=== PATIENT | male | born 1940 | race Caucasian/White ===

== ENCOUNTER 2021-08-22 17:10 | Inpatient (IN) | payer MEDICARE, SELFPAY ==
--- NOTE | 2021-08-22 17:07 | ECG_ITS ---
APPROVED REPORT Exam: Resting ECG HR:66 bpm ECG Measurements Heart Rate 66 AXES QRSd 105 QRS -25 QT 362 T 57 QTc 376 Conclusion ATRIAL FIBRILLATION LOW QRS VOLTAGE IN EXTREMITY LEADS [QRS DEFLECTION < 0.5 mV IN LIMB LEADS] ANTEROSEPTAL MYOCARDIAL INFARCTION , PROBABLY OLD [40+ ms Q WAVE IN V1-V4] ABNORMAL ECG UNCONFIRMED REPORT Electronically signed by : Jd Dumont MD 08/24/2021 18:01:04
[2021-08-22 17:23] VITALS: BP 102/59; PULSE 65; RESP 18; TEMP 36.9; O2SAT 96; BMI 33.3
--- NOTE | 2021-08-22 17:46 | CT_ITS ---
PROCEDURE INFORMATION: Exam: CT Head Without Contrast Exam date and time: 08/22/2021 5:46 PM Age: 81 years old Clinical indication: Altered mental status/memory loss; Confusion or disorientation; Additional info: AMS. Wo contrast due to [id number] creat 7.10 gfr 7 TECHNIQUE: Imaging protocol: Computed tomography of the head without contrast. Radiation optimization: All CT scans at this facility use at least one of these dose optimization techniques: automated exposure control; mA and/or kV adjustment per patient size (includes targeted exams where dose is matched to clinical indication); or iterative reconstruction. Other technique: STROKE PROTOCOL was implemented. COMPARISON: No relevant prior studies available. FINDINGS: Brain: Periventricular and subcortical small vessel ischemic changes. Severe atrophy associated. No acute hemorrhage, mass effect, midline shift, or extra-axial fluid collection. Cerebral ventricles: No ventriculomegaly. Paranasal sinuses: Visualized sinuses are unremarkable. No fluid levels. Mastoid air cells: Visualized mastoid air cells are well aerated. Bones/joints: Unremarkable. No acute fracture. Soft tissues: Unremarkable. IMPRESSION: No acute intracranial abnormality. ASSESSMENT: ASPECTS ([place] Stroke Program Early CT Score) is 10.
--- NOTE | 2021-08-22 17:46 | XR_ITS ---
PROCEDURE INFORMATION: Exam: XR Chest Exam date and time: 08/22/2021 5:46 PM Age: 81 years old Clinical indication: Other: Hypoxia, lung cancer by HX, AMS; Additional info: AMS, hypoxia TECHNIQUE: Imaging protocol: XR of the chest. Views: 1 view. COMPARISON: No relevant prior studies available. FINDINGS: Tubes, catheters and devices: Dorsal column stimulator in the lower T-spine. Lungs: Right lung mass with right lower lobe infiltrate. Pleural spaces: Unremarkable. No pleural effusion. No pneumothorax. Heart/Mediastinum: Unremarkable. No cardiomegaly. Bones/joints: Right shoulder arthroplasty. IMPRESSION: Right lung mass with right lower lobe infiltrate.
--- NOTE | 2021-08-22 17:50 | HMH.EDGENADL ---
ED Disposition Clinical Impression: Acute encephalopathy Disposition: Admitted As Inpatient Condition on Discharge: Critical - Critical Care Critical Care Time: Yes Attestation: On 08/22/21, the high probability of a clinically significant, sudden or life threatening deterioration of the following system(s) required my full and direct attention, intervention and personal management. The time I documented below is in addition to time spent performing reported procedures but includes the following listed in this critical care notation. Total Critical Care Time: 45 Vital system(s) involved:: Renal Failure My critical care processes included: Assessment & monitoring of V/S, Initial and Re-exams, Data Review/Interpretation, Coordinating Care, Medication Orders and management, Documentation Medical Decision Making - Reuben Inquiry Pt receiving controlled substance: No Vital Signs: 08/22/21 17:23 08/22/21 18:00 08/22/21 18:15 Temperature 98.4 F Temperature Source Oral Pulse Rate 69 70 Pulse Rate [Left Radial] 65 Respiratory Rate 18 16 22 Blood Pressure 108/75 L 108/75 L Blood Pressure [Right Arm] 102/59 L Blood Pressure Mean 86 Blood Pressure Mean [Right Arm] 73 02 Sat by Pulse Oximetry 96 95 97 Oxygen Delivery Method Room Air Nasal Cannula Oxygen Flow Rate (LPM) 2 - Lab Data Lab Results 08/22/21 17:24: WBC 18.4 H, RBC 2.75 L, Hgb 8.3 L, Hct 26.1 L, MCV 95.1 H, MCH 30.1, MCHC 31.6 L, RDW 18.5 H, Plt Count 322, MPV 8.0, Neut % (Auto) 91.4 H, Lymph % (Auto) 3.6 L, Miller % (Auto) 4.3, Eos % (Auto) 0.5, Baso % (Auto) 0.1, Neut # (Auto) 16.8 H, Lymph # (Auto) 0.7, Miller # (Auto) 0.8, Eos # (Auto) 0.1, Baso # (Auto) 0.0, Total Counted 100, Neutrophils % (Manual) 81 H, Band Neutrophils % 11.0 H, Lymphocytes % (Manual) 5 L, Monocytes % (Manual) 3, Platelet Estimate Normal, Hypochromasia 1+, Anisocytosis 1+, Rouleaux 2+ 08/22/21 17:24: Sodium 122 L, Potassium 6.5 H*, Chloride 92 L, Carbon Dioxide 21 L, Anion Gap 15.5 H, BUN 110 H*, Creatinine 7.10 H, Estimated Creat Clear 14, Estimated GFR 7 L*, Est GFR ( Amer) 9 L*, Glucose 91, Calcium 9.0, Total Bilirubin 0.6, AST 23, ALT 19, Alkaline Phosphatase 118, Troponin I 0.03, Total Protein 6.0 L, Albumin 3.1 L, Globulin 2.9, Albumin/Globulin Ratio 1.1, TSH 15.70 H, Thyroxine (T4) 3.9 L, Salicylates 1.4 L, Acetaminophen < 10 L 08/22/21 18:20: Lactate 1.7 08/22/21 18:36: Urine Color Yellow, Urine Appearance Clear, Urine pH 6.0, Ur Specific [place] 1.010, Urine Protein Negative, Urine Glucose (UA) Negative, Urine Ketones Negative, Urine Blood Negative, Urine Nitrate Negative, Urine Bilirubin Negative, Urine Urobilinogen 0.2, Ur Leukocyte Esterase Negative, Urine RBC Occasional, Urine WBC Occasional, Ur Squamous Epith Cells None, Urine Bacteria None 08/22/21 18:36: Urine Opiates Screen Positive H, Urine Methadone Screen Negative, Ur Barbituates Screen Negative, Ur Phencyclidine Scrn Negative, Ur Amphetamines Screen Negative, U Benzodiazepines Scrn Negative, Urine Cocaine Screen Negative, U Marijuana (THC) Screen Negative Result diagrams: 08/22/21 17:24 08/22/21 17:24 Orders (Tests/Meds): ED MEDICATIONS Generic Name Dose Route Start Last Admin Trade Name Freq PRN Reason Stop Dose Admin Calcium Gluconate 2,000 mg/ 120 mls @ 60 mls/hr 08/22/21 18:19 08/22/21 18:42 Sodium Chloride IV 08/22/21 20:18 60 mls/hr ONCE ONE Administration Sodium Chloride 10 ml 08/22/21 18:48 Sodium Chloride 0.9% 10ml Vial IV 09/21/21 18:47 NEEDED PRN to Dilute Lorazepam inj Discontinued Medications Generic Name Dose Route Start Last Admin Trade Name Freq PRN Reason Stop Dose Admin Dextrose 25 ml 08/22/21 18:20 08/22/21 18:42 Dextrose 50% 50ml Syringe (Crash Cart) IVP 08/22/21 18:21 25 ml ONCE ONE Administration Furosemide 40 mg 08/22/21 18:21 08/22/21 18:44 Furosemide 40mg/4ml Vial IV 08/22/21 18:22 40 mg ONCE ONE Administratio
[2021-08-22 18:00] VITALS: BP 108/75; PULSE 69; RESP 16; O2SAT 95
[2021-08-22 18:01] LABS: Basophils % 0.1 % (0.1-2.0); Eosinophils # 0.1 K/mm3 (0.0-0.4); Lymphocytes # 0.7 K/mm3 (0.7-4.5); Mean Corpuscular Volume 95.1 fl (80-94); Monocytes # 0.8 K/mm3 (0.1-1.0); Platelet Count 322 K/mm3 (142-424)
[2021-08-22 18:05] LABS: Alanine Aminotransferase 19 U/L (12-78); Albumin Level 3.1 g/dl (3.5-5.0); Albumin/Globulin Ratio 1.1 (1.1-1.8); Alkaline Phosphatase 118 U/L (38-126); Anion Gap 15.5 mEq/L (5-15); Aspartate Amino Transferase 23 U/L (17-59); Bilirubin,Total 0.6 mg/dl (0.2-1.3); Carbon Dioxide 21 mmol/L (22.0-30.0); Chloride 92 mmol/L (98-107); Creatinine Clearance Estimated 14 mL/min (50-200); Globulin 2.9 g/dL (1.3-3.2); Glucose 91 mg/dl (74-100); Salicylate 1.4 mg/dL (2.0-20.0); Sodium 122 mmol/L (136-145)
[2021-08-22 18:06] LABS: Eosinophils % 0.5 % (0.1-12.0); Hemoglobin 8.3 g/dL (14.1-18.0); Lymphocytes % 3.6 % (10-50); Mean Corpuscular HGB Conc 31.6 g/dL (31.8-35.4); Mean Corpuscular Hemoglobin 30.1 pg (27.0-31.2); Monocytes % 4.3 % (1.7-9.3); Neutrophils # 16.8 K/mm3 (1.8-7.8); Neutrophils % 91.4 % (37.0-80.0); Red Blood Count 2.75 M/mm3 (4.60-6.20); Red Cell Distribution Width 18.5 % (11.5-17.5); White Blood Count 18.4 K/mm3 (4.8-10.8)
[2021-08-22 18:11] LABS: Acetaminophen < 10 ug/ml (10-30); Blood Urea Nitrogen 110 mg/dl (9-20); Potassium 6.5 mmoL/L (3.5-5.1)
[2021-08-22 18:12] LABS: Estimated Glomerular Filt Rate 7 ml/min (>60); GFR (African American) 9 ML/MIN (>60)
[2021-08-22 18:13] LABS: Hematocrit 26.1 % (42.0-52.0)
[2021-08-22 18:15] VITALS: BP 108/75; PULSE 70; RESP 22; O2SAT 97
[2021-08-22 18:15] LABS: MANUAL DIFFERENTIAL MANUAL DIFFERENTIAL (MANUAL DIFF)
[2021-08-22 18:17] LABS: Troponin I 0.03 ng/ml (0.00-0.034)
[2021-08-22 18:18] LABS: Anisocytosis 1+; Hypochromasia 1+; Lymphocytes % 5 % (10-50); Monocytes % 3 % (2-9); Neutrophils % 81 % (42-76); Platelet Estimate Normal; Rouleaux 2+; Total Cells Counted 100
[2021-08-22 18:22] LABS: T4 (Thyroxine) 3.9 ug/dl (5.53-11.0)
--- NOTE | 2021-08-22 18:37 | PC.NURSE ---
Pt to rad
[2021-08-22 18:41] LABS: Microscopic, Urine URINE MICROSCOPIC (MICROSCOPIC)
[2021-08-22 18:48] LABS: Lactic Acid 1.7 mmol/L (0.7-2.1)
[2021-08-22 18:56] LABS: Barbiturates Screen,Urine Negative ng/ml (<200); Benzodiazepines Screen,Urine Negative ng/ml (<200)
--- NOTE | 2021-08-22 18:56 | PC.NURSE ---
Dr Julia victor
[2021-08-22 18:57] LABS: Amphetamine/Metha Screen,Urine Negative ng/ml (<1000); Appearance,Urine CLEAR (Clear); Bilirubin,Urine Negative (Negative); Blood, Urine Negative (Negative); Cannabinoid Screen,Urine Negative ng/ml (<50); Color,Urine YELLOW (Yellow); Glucose,Urine (UA) Negative (Negative); Ketones,Urine Negative (Negative); Leukocyte Esterase,Urine Negative (Negative); Nitrate,Urine Negative (Negative); Protein,Urine Negative (Negative); Urobilinogen,Urine 0.2 EU/dl (0.2)
[2021-08-22 18:58] LABS: Cocaine Screen,Urine Negative ng/ml (<300)
[2021-08-22 18:59] LABS: Methadone Screen,Urine Negative ng/ml (<300); Opiate Screen,Urine Positive ng/ml (<300)
[2021-08-22 19:00] VITALS: BP 122/67; PULSE 49; O2SAT 88
[2021-08-22 19:00] LABS: Phencyclidine Screen,Urine Negative ng/ml (<25)
--- NOTE | 2021-08-22 19:01 | PC.NURSE ---
1800ml emptied from huynh bag.
[2021-08-22 19:02] LABS: RBC,Urine Occasional #/hpf (0-3); WBC,Urine Occasional #/hpf (0-3)
--- NOTE | 2021-08-22 19:06 | PC.NURSE ---
ED doctor on phone with Ad
[2021-08-22 19:08] LABS: Coronavirus 19, PCR Not Detected (NotDetected); Influenza A, PCR Not Detected (NotDetected); Influenza B, PCR Not Detected (NotDetected)
[2021-08-22 19:39] VITALS: BP 122/67; PULSE 49; RESP 20; TEMP 36.6; O2SAT 88
[2021-08-22 19:41] VITALS: BP 124/67; PULSE 66; RESP 17; TEMP 36.6; O2SAT 94; BMI 36.3
--- NOTE | 2021-08-22 19:41 | PC.NURSE ---
patient up to floor via stretcher @ this time.
--- NOTE | 2021-08-22 23:13 | PC.NURSE ---
[id number] attempted to call [facility] to get an updated medication list for this patient, voice mail left at this time
--- NOTE | 2021-08-23 02:30 | PC.WOUNDNOTE ---
COCCYX STAGE 2 DRESSING APPLIED BRUISE TO L UPPER ARM R LOWER EXTREMITY - EXTERNAL FIXATOR REDNESS AND SWELLING LLE SCRATCH/BRUISE TO L HIP
[2021-08-23 04:00] VITALS: BP 93/65; PULSE 82; RESP 20; TEMP 36.7; O2SAT 94
--- NOTE | 2021-08-23 04:02 | PC.NURSE ---
Attempted to call [facility] again to obtain med list, went to voicemail. Voicemail left with call back number.
--- NOTE | 2021-08-23 04:17 | PC.NURSE ---
Pt was a new admit this shift. Pt admitted with acute encephalopathy. Pt has had AMS, slurred speech. Pt has replied to some questions with yes or no answer. When asked if he is comfortable pt stated yes . According to on 08/21 pt was talking and having conversations with her, then when she seen him yesterday he was confused, hallucinating, had slurred speech, and increase in baseline tremors. Pt has slept majority of my shift, but arousable. Pt seems to be comfortable at this time. at bedside with pt d/t prognosis, states she just wants pt to be comfortable. Pt is a DNR. Pt voiding dark colored urine per huynh catheter. See I&O. Medicating pt per SEP. Pt is on 3 L NC, maintaining O2 sat > 90%. Pt has an external fixator on RLL, elevated on foam pillow. See nursing wound note for skin issues. Call light in reach.
[2021-08-23 05:10] VITALS: BMI 36.3
[2021-08-23 08:00] VITALS: BP 118/67; PULSE 83; RESP 19; TEMP 36.9; O2SAT 92
--- NOTE | 2021-08-23 09:52 | HMH.HP ---
*Admission Date: 08/22/21 *Chief complaint: confusion *History of present illness: this is a patient who has complicated medical hx and was at [facility] and dev acute confusion - he has known ent cancer and treatment had been suspended sec to other health issues - can only drink liquids - he was seen in the ed per ems. per ems pt has slurred speech, tremors and weakness. on arrival pt is alert and oriented to self. pt has no complaints. pt denies any pain. unable to reach care home staff for report. 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 Patient was found this AM around 0800 at care home by at bedside (who provides history) and patient seemed confused, staring off into space, grabbing at seemingly visual hallucinations in air in front of him, with slurred speech. He was more tremulous than usual (but at baseline has tremors due to peripheral neuropathy per his at bedside). He was noted by care home to have dark urine this AM and there was concern for UTI. Patient normally able to conversate without trouble and without confusion. History is difficult to obtain from patient himself given his altered mental status male presents for AMS. LKN 1700 on 08/21/21. Seen altered this AM by at care home. Patient intermittently following commands, with slurred speech, answering questions appropriately at times, mild right lower facial droop, with RUE weakness compared to LUE. He is awake, alert, able to respond to external stimuli intermittently. Not able to participate with full neuro exam. Tachycardic at times, with increased tremors making obtaining consistent cardiac monitoring and spo2 monitoring difficult to obtain. Afebrile, normal range temp. Low-normal BP in triage. DDx includes but not limited to sepsis, intoxication, electrolyte abnormality, CVA, ACS, PE, metastasis. Labs reveal wbc 18k, k 6.5, cr 7.1, bun 110. EKG shows afib without RVR, with wavy baseline given patient's tremors but no gross ST changes. Given pt's encephalopathy and lab findings I believe patient needs emergent dialysis and advised patient's that patient would need transfer to dialysis capable facility given that is not done here. discussed extensively with patient who is pt's poa about pt's critical illness and time sensitive treatment needs and after long discussion, pt states she would not want pt to suffer and pt himself would not want this for himself. Pt made DNR, DNI and pt states she does not believe pt would want to have dialysis or be transferred for this. She wants pt to be comfortable and I directly expressed that pt has extremely poor prognosis without dialysis and may within hours to days. she understands this and acknowledges that she believes pt would want things as per her choices for him at this time. Pt was given calcium, insulin, dextrose, bicarbonate here in the ED. CT head was without acute findings. Contrasted scans were not obtained given patient's critically poor renal function and given his anticipated clinical course,and pt's amenable to this plan for patient. CXR shows right lung mass and infiltrates. Blood and urine cultures collected, pt given empiric abx vancomycin and cefepime. Spoke with Dr. Peralta (operations accountant inpatient physician for admissions) and he is amenable to this plan. pt was admitted and has recent fx and has ext fixator rt lower leg - nonambulatory [facility] History I have reviewed the patient's past medical history: Yes Medical History: Reports:: Atrial Fibrillation, Cancer, Hyperlipidemia, Hypertension Denies:: Diabetes Mellitus Type 1, Diabetes Mellitus Type 2, MRSA *Have you ever received a pneumonia vaccine?: No *Have you received a flu vaccine this se
[2021-08-23 10:49] LABS: Basophils % 0.1 % (0.1-2.0); Eosinophils # 0.1 K/mm3 (0.0-0.4); Eosinophils % 0.8 % (0.1-12.0); Hematocrit 24.6 % (42.0-52.0); Hemoglobin 7.8 g/dL (14.1-18.0); Lymphocytes # 0.5 K/mm3 (0.7-4.5); Lymphocytes % 3.3 % (10-50); Mean Corpuscular HGB Conc 31.9 g/dL (31.8-35.4); Mean Corpuscular Hemoglobin 30.3 pg (27.0-31.2); Mean Corpuscular Volume 94.8 fl (80-94); Mean Platelet Volume 8.1 fl (7.4-10.4); Monocytes # 0.8 K/mm3 (0.1-1.0); Monocytes % 5.3 % (1.7-9.3); Neutrophils # 13.8 K/mm3 (1.8-7.8); Neutrophils % 90.6 % (37.0-80.0); Platelet Count 302 K/mm3 (142-424); Red Blood Count 2.59 M/mm3 (4.60-6.20); Red Cell Distribution Width 18.9 % (11.5-17.5); White Blood Count 15.2 K/mm3 (4.8-10.8)
[2021-08-23 10:50] LABS: MANUAL DIFFERENTIAL MANUAL DIFFERENTIAL (MANUAL DIFF)
[2021-08-23 11:02] LABS: Chloride 97 mmol/L (98-107); Potassium 3.4 mmoL/L (3.5-5.1); Sodium 128 mmol/L (136-145)
[2021-08-23 11:05] LABS: Anion Gap 7.4 mEq/L (5-15); Calcium 8.9 mg/dl (8.4-10.2); Carbon Dioxide 27 mmol/L (22.0-30.0); Creatinine Clearance Estimated 28 mL/min (50-200); Estimated Glomerular Filt Rate 15 ml/min (>60); GFR (African American) 19 ML/MIN (>60); Glucose 83 mg/dl (74-100)
[2021-08-23 11:08] LABS: Blood Urea Nitrogen 88 mg/dl (9-20)
[2021-08-23 12:22] LABS: Anisocytosis 1+; Lymphocytes % 10 % (10-50); Monocytes % 4 % (2-9); Neutrophils % 84 % (42-76); Platelet Estimate Normal; Rouleaux 2+; Total Cells Counted 100
--- NOTE | 2021-08-23 14:05 | HMH.PHAINT ---
CALLED [facility] ([phone]) THIS MORNING AND SPOKE WITH SOMEONE AT NURSING STATION [facility], STATING THEY WOULD TELL A NURSE AND HAVE THEM FAX A COPY OF THE MAR. CALLED BACK AT 14:00 SINCE NO FAX WAS RECEIVED AND HAD TO LEAVE A MESSAGE.
--- NOTE | 2021-08-23 14:58 | PC.NURSE ---
PT IS RESTING IN BED WITH FAMILY AT BEDSIDE. ALERT TO SELF ONLY. PT WILL ANSWER SIMPLE YES OR NO QUESTIONS. PT RECEIVED MORPHINE ONE TIME THIS SHIFT FOR DISCOMFORT. TURNED AND REPOSITIONED PER FAMILY/PATIENT REQUEST. PT HAS BEEN TAKING SIPS OF BOOST ON AND OFF T/O THE SHIFT. EXTERNAL FIXATOR NOTED TO LLE. PT HAS 3+ PITTING EDEMA NOTED TO LLE/BUE. LUNG SOUNDS DIMINISHED WITH SCATTERED RHONCHI. ABDOMEN SOFT/NON TENDER WITH ACTIVE BOWEL SOUNDS. STAGE 2 NOTED TO COCCYX. WILL CONTINUE TO MONITOR.
[2021-08-23 20:10] VITALS: BP 100/56; PULSE 113; RESP 18; TEMP 38.2; O2SAT 97
--- NOTE | 2021-08-24 05:47 | PC.NURSE ---
During my shift, pts speech clear, coherent. Pt alert and oriented to self, talking to and staff. Answering simple questions appropriately, with periods of confusion. Pt has had c/o of pain in his back and all over . Medicated per SEP for pain. Around 0300 pts states the pt is agitated and is anxious. When asked pt whats wrong he states he can't sleep and can't relax. Medicated per SEP. Pt resting comfortably at this time. Pt is urinating per huynh catheter dark colored urine. See I&O. Pt is still on 3 L NC, O2 sat > 90%.Turning pt at pt/family request. Providing oral care as needed. Pt has been taking sips of water and boost. No other needs voiced at this time. at bedside. Call light in reach.
[2021-08-24 07:26] LABS: Basophils % 0.2 % (0.1-2.0); Eosinophils # 0.1 K/mm3 (0.0-0.4); Eosinophils % 0.5 % (0.1-12.0); Hematocrit 23.9 % (42.0-52.0); Hemoglobin 7.7 g/dL (14.1-18.0); Lymphocytes # 0.5 K/mm3 (0.7-4.5); Lymphocytes % 3.9 % (10-50); Mean Corpuscular Hemoglobin 30.5 pg (27.0-31.2); Mean Corpuscular Volume 95.1 fl (80-94); Mean Platelet Volume 7.4 fl (7.4-10.4); Monocytes # 0.8 K/mm3 (0.1-1.0); Monocytes % 5.9 % (1.7-9.3); Neutrophils # 12.5 K/mm3 (1.8-7.8); Neutrophils % 89.5 % (37.0-80.0); Platelet Count 301 K/mm3 (142-424); Red Blood Count 2.51 M/mm3 (4.60-6.20); Red Cell Distribution Width 18.3 % (11.5-17.5); White Blood Count 13.9 K/mm3 (4.8-10.8)
[2021-08-24 07:33] LABS: MANUAL DIFFERENTIAL MANUAL DIFFERENTIAL (MANUAL DIFF)
[2021-08-24 07:35] VITALS: BP 112/51; PULSE 119; RESP 16; TEMP 36.8; O2SAT 97
[2021-08-24 07:42] LABS: Chloride 100 mmol/L (98-107); Potassium 3.2 mmoL/L (3.5-5.1); Sodium 130 mmol/L (136-145)
[2021-08-24 07:44] LABS: Blood Urea Nitrogen 55 mg/dl (9-20); Creatinine Clearance Estimated 71 mL/min (50-200); Estimated Glomerular Filt Rate 45 ml/min (>60); GFR (African American) 54 ML/MIN (>60)
[2021-08-24 07:45] LABS: Anion Gap 6.2 mEq/L (5-15); Calcium 8.7 mg/dl (8.4-10.2); Carbon Dioxide 27 mmol/L (22.0-30.0); Glucose 84 mg/dl (74-100)
--- NOTE | 2021-08-24 08:17 | HMH.PHAVTE ---
[facility] Pharmacy VTE Monitoring - Patient Demographics Admission date: 08/22/21 Report Date: 08/24/21 Time: 08:17 Allergies/Adverse Reactions: Patient Allergies No Known Allergies Allergy (Verified 08/22/21 22:15) Height: 1.88 m Weight: 128.457 kg Patient Problems: Current Active Problems Acute encephalopathy (Acute) Acute delirium (Acute) Obesity (BMI 30-39.9) (Acute) Anemia (Acute) Dysphagia (Acute) Acute hyperkalemia (Acute) Acute renal failure (ARF) (Acute) Hyponatremia (Acute) Hypothyroidism (Acute) Mass of right lung (Acute) Pharyngeal cancer (Acute) Lower leg fracture (Acute) Decubitus ulcer of coccyx, stage 2 (Acute) Immobility (Acute) - VTE Risk Labs: VTE Related Lab Results Hgb 7.7 g/dL (14.1-18.0) L 08/24/21 07:15 Hct 23.9 % (42.0-52.0) L 08/24/21 07:15 Plt Count 301 K/mm3 (142-424) 08/24/21 07:15 BUN 55 mg/dl (9-20) H D 08/24/21 07:15 Creatinine 1.50 mg/dl (0.66-1.25) H D 08/24/21 07:15 Estimated Creat Clear 71 mL/min (50-200) 08/24/21 07:15 VTE Score: 12 VTE Risk Level: Moderate Risk - Prophylaxis VTE Prophylaxis Ordered?: Yes Types of VTE Prophylaxis: TEDS Knee High Location of Applied Device: Bilateral Lower Extremeties
[2021-08-24 08:30] LABS: Lymphocytes % 2 % (10-50); Monocytes % 6 % (2-9); Neutrophils % 92 % (42-76); Total Cells Counted 100
[2021-08-24 08:34] LABS: Platelet Estimate Normal
[2021-08-24 08:41] LABS: Chloride 100 mmol/L (98-107); Sodium 130 mmol/L (136-145)
[2021-08-24 08:42] LABS: Potassium 3.3 mmoL/L (3.5-5.1)
[2021-08-24 08:44] LABS: Blood Urea Nitrogen 56 mg/dl (9-20); Creatinine Clearance Estimated 76 mL/min (50-200); Estimated Glomerular Filt Rate 49 ml/min (>60); GFR (African American) 59 ML/MIN (>60)
[2021-08-24 08:45] LABS: Anion Gap 4.3 mEq/L (5-15); Calcium 8.7 mg/dl (8.4-10.2); Carbon Dioxide 29 mmol/L (22.0-30.0); Glucose 83 mg/dl (74-100)
--- NOTE | 2021-08-24 09:08 | HMH.ACPN2 ---
Internal Medicine - PN: Subj *Date: 08/24/21 *Time: 08:00 Interval history: pt laying in bed c/o rt hand pain., states she does not want swallowing eval ct of chest ok had pet scan at [facility] recently but does not know results, states he only is able to drink boost and has lost over 100 lbs since october Exam Vital signs and Labs for Last 24 Hours: Temp Pulse Resp BP Pulse Ox 98.3 F 119 H 16 112/51 L 97 08/24/21 07:35 08/24/21 07:35 08/24/21 07:35 08/24/21 07:35 08/24/21 07:35 Laboratory Results - last 24 hr 08/23/21 10:40: WBC 15.2 H, RBC 2.59 L, Hgb 7.8 L, Hct 24.6 L, MCV 94.8 H, MCH 30.3, MCHC 31.9, RDW 18.9 H, Plt Count 302, MPV 8.1, Neut % (Auto) 90.6 H, Lymph % (Auto) 3.3 L, Garvin % (Auto) 5.3, Eos % (Auto) 0.8, Baso % (Auto) 0.1, Neut # (Auto) 13.8 H, Lymph # (Auto) 0.5 L, Garvin # (Auto) 0.8, Eos # (Auto) 0.1, Baso # (Auto) 0.0, Total Counted 100, Neutrophils % (Manual) 84 H, Band Neutrophils % 1.0, Lymphocytes % (Manual) 10, Monocytes % (Manual) 4, Basophils % (Manual) 1.0, Platelet Estimate Normal, Anisocytosis 1+, Rouleaux 2+ 08/23/21 10:40: Sodium 128 L, Potassium 3.4 L D, Chloride 97 L, Carbon Dioxide 27, Anion Gap 7.4, BUN 88 H, Creatinine 3.80 H D, Estimated Creat Clear 28, Estimated GFR 15 L*, Est GFR ( Amer) 19 L* D, Glucose 83, Calcium 8.9 08/24/21 07:15: WBC 13.9 H, RBC 2.51 L, Hgb 7.7 L, Hct 23.9 L, MCV 95.1 H, MCH 30.5, MCHC 32.0, RDW 18.3 H, Plt Count 301, MPV 7.4, Neut % (Auto) 89.5 H, Lymph % (Auto) 3.9 L, Garvin % (Auto) 5.9, Eos % (Auto) 0.5, Baso % (Auto) 0.2, Neut # (Auto) 12.5 H, Lymph # (Auto) 0.5 L, Garvin # (Auto) 0.8, Eos # (Auto) 0.1, Baso # (Auto) 0.0, Total Counted 100, Neutrophils % (Manual) 92 H, Lymphocytes % (Manual) 2 L, Monocytes % (Manual) 6, Platelet Estimate Normal 08/24/21 07:15: Sodium 130 L, Potassium 3.2 L, Chloride 100, Carbon Dioxide 27, Anion Gap 6.2, BUN 55 H D, Creatinine 1.50 H D, Estimated Creat Clear 71, Estimated GFR 45 L, Est GFR ( Amer) 54 L D, Glucose 84, Calcium 8.7 08/24/21 08:30: Sodium 130 L, Potassium 3.3 L, Chloride 100, Carbon Dioxide 29, Anion Gap 4.3 L, BUN 56 H, Creatinine 1.40 H, Estimated Creat Clear 76, Estimated GFR 49 L, Est GFR ( Amer) 59, Glucose 83, Calcium 8.7 I & O for Last 24 hours: Intake & Output 08/21/21 08/22/21 08/23/21 08/24/21 11:59 11:59 11:59 11:59 Intake Total 0 / 0 Output Total 3500 / 3500 4200 / 4200 Balance -3500 / -3500 -4200 / -4200 Weight 283 lb 3.2 oz - Constitutional no acute distress, chronically ill appearing - *Routine HEENT Exam Head: Present: normocephalic Eye: Present: PERRL ENT: Present: mucous membranes moist - *Routine Neck Exam Present: supple. Absent: lymphadenopathy - *Routine Respiratory Exam Present: CTA bilaterally - *Routine Cardiovascular Exam Present: RRR - *Routine Abdominal Exam Present: soft, normoactive bowel sounds. Absent: tenderness - *Routine Extremities Exam Absent: cyanosis, clubbing, edema Comments: external fixation to rt lower ext, dressing in place swollen rt lower ex - *Routine Skin Exam Present: wounds Comments: stage 2 to coccyx dressing to external fixation hardware - *Routine Neurological Exam Present: alert Assessment and Plan (1) Acute delirium Status: Acute Category: Medical Code(s): R41.0 - Disorientation, unspecified (2) Obesity (BMI 30-39.9) Status: Acute Category: Medical Code(s): E66.9 - Obesity, unspecified (3) Anemia Status: Acute Qualifiers: Anemia type: unspecified type Qualified Code(s): D64.9 - Anemia, unspecified Category: Medical Code(s): D64.9 - Anemia, unspecified (4) Dysphagia Status: Acute Category: Medical Code(s): R13.10 - Dysphagia, unspecified (5) Acute hyperkalemia Status: Acute Category: Medical Code(s): E87.5 - Hyperkalemia (6) Acute renal failure (ARF) Status: Acute Qualifiers: Acute renal failure type: unspecified Qu
--- NOTE | 2021-08-24 09:17 | CA_ITS ---
FINAL REPORT TECHNIQUE: Sonographic images of the veins of the right upper extremity were obtained from axilla to antecubital fossa. Additionally, images of the internal jugular vein and subclavian vein were also obtained. CLINICAL HISTORY: pain,swelling, hx cancer FINDINGS: The veins of the right upper extremity are compressible from axilla to antecubital fossa. Blood flow is demonstrated by both color and spectral Doppler as well. The internal jugular vein and subclavian vein are also patent. IMPRESSION: No evidence of venous thrombosis of the upper extremity. Reviewed, Interpreted and Dictated by Ricardo Black MD Transcribed by Galilea Sexton Authenticated by Ricardo Black MD on 08/26/2021 02:41:33 PM [facility]
--- NOTE | 2021-08-24 09:33 | SW/DCPLANNER ---
Addendum entered by [facility] 08/27/21 09:23: I have updated Shayla verdugo/ Hospice that the plan for this patient is to discharge home today. is aware of plan and all DME is set up at home. Addendum entered by [facility] 08/26/21 10:13: I have updated Jose Alberto verdugo/ [facility] regarding this patient. Addendum entered by [facility] 08/26/21 08:30: I have informed Anca verdugo/ [facility] that this patients family has decided to discharge home with Hospice services. Addendum entered by [facility] 08/25/21 15:00: I have informed Bere verdugo/ Hospice that Ortho will operate on this patient tomorrow. Addendum entered by [facility] 08/25/21 10:17: Bere verdugo/ [facility] stated that she is reviewing referral and will follow up with patients via phone this AM. Addendum entered by [facility] 08/25/21 09:33: has requested that patient discharge home with [facility] services once medically stable for discharge. Patient information/order has been faxed to [facility]: I will follow up with Hospice nurse once they reviewed and patients family. Original Note: This patient currently resides at [facility]. I spoke with Anca Noonan from [facility] and she has stated that patient is SNF level of care. I will continue to follow up with and [facility] until patient is medically stable for discahrge.
[2021-08-24 09:45] VITALS: BMI 36.2
--- NOTE | 2021-08-24 10:00 | DIET.NUTRFU ---
RD saw patient and spoke to today during rounds. Patient has advanced cancer and poor prognosis. 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 claims he can only tolerate boost. Does not eat jello or broth. Does not want a tray at this time. She does provide him with Boost, on a good day he will drink 4/day each providing 530kcal and 22gm [id number] and 88gm protein. This RD provided contact information if he requests anything else that is safe and tolerated to let us know. to wanting more of comfort measures then aggressive tx, she is aware of outcomes.
[2021-08-24 18:07] VITALS: O2SAT 92
[2021-08-24 19:33] VITALS: BP 134/77; PULSE 63; RESP 18; TEMP 37.3; O2SAT 97
[2021-08-24 20:00] VITALS: O2SAT 97
[2021-08-25] VITALS: O2SAT 97
--- NOTE | 2021-08-25 05:20 | PC.NURSE ---
weight not obtained due to stating that he is finally relaxed and did not want him disturbed
[2021-08-25 07:11] LABS: Chloride 101 mmol/L (98-107); Potassium 3.5 mmoL/L (3.5-5.1); Sodium 134 mmol/L (136-145)
[2021-08-25 07:14] LABS: Blood Urea Nitrogen 32 mg/dl (9-20); Creatinine Clearance Estimated 107 mL/min (50-200); Estimated Glomerular Filt Rate 93 ml/min (>60); GFR (African American) 113 ML/MIN (>60)
[2021-08-25 07:15] LABS: Anion Gap 7.5 mEq/L (5-15); Calcium 8.9 mg/dl (8.4-10.2); Carbon Dioxide 29 mmol/L (22.0-30.0); Glucose 96 mg/dl (74-100)
[2021-08-25 07:16] LABS: Basophils % 0.3 % (0.1-2.0); Eosinophils % 0.2 % (0.1-12.0); Hematocrit 25.5 % (42.0-52.0); Hemoglobin 7.9 g/dL (14.1-18.0); Lymphocytes # 0.7 K/mm3 (0.7-4.5); Lymphocytes % 6.3 % (10-50); Mean Corpuscular HGB Conc 30.9 g/dL (31.8-35.4); Mean Corpuscular Hemoglobin 29.7 pg (27.0-31.2); Mean Corpuscular Volume 96.1 fl (80-94); Mean Platelet Volume 8.1 fl (7.4-10.4); Monocytes # 0.6 K/mm3 (0.1-1.0); Monocytes % 5.3 % (1.7-9.3); Neutrophils % 87.9 % (37.0-80.0); Platelet Count 319 K/mm3 (142-424); Red Blood Count 2.65 M/mm3 (4.60-6.20); Red Cell Distribution Width 19.3 % (11.5-17.5); White Blood Count 11.4 K/mm3 (4.8-10.8)
[2021-08-25 07:21] LABS: MANUAL DIFFERENTIAL MANUAL DIFFERENTIAL (MANUAL DIFF)
[2021-08-25 07:33] LABS: Anisocytosis 1+; Hypochromasia 1+; Lymphocytes % 10 % (10-50); Monocytes % 5 % (2-9); Neutrophils % 85 % (42-76); Platelet Estimate Normal; Total Cells Counted 100
[2021-08-25 07:36] VITALS: O2SAT 96
[2021-08-25 08:00] VITALS: BP 140/80; PULSE 120; RESP 24; TEMP 36.5; O2SAT 98
--- NOTE | 2021-08-25 09:25 | HMH.ACPN2 ---
Internal Medicine - PN: Subj *Date: 08/25/21 *Time: 14:17 Interval history: 81-year-old male patient resting in bed quietly, at bedside. Patient denies any shortness of breath or pain in right lower extremity. is requesting removal of right lower extremity external fixation so that they can be discharged home with home hospice. Exam Vital signs and Labs for Last 24 Hours: Temp Pulse Resp BP Pulse Ox 97.7 F 120 H 24 140/80 98 08/25/21 08:00 08/25/21 08:00 08/25/21 08:00 08/25/21 08:00 08/25/21 08:00 Laboratory Results - last 24 hr 08/25/21 06:58: WBC 11.4 H, RBC 2.65 L, Hgb 7.9 L, Hct 25.5 L, MCV 96.1 H, MCH 29.7, MCHC 30.9 L, RDW 19.3 H, Plt Count 319, MPV 8.1, Neut % (Auto) 87.9 H, Lymph % (Auto) 6.3 L, Dane % (Auto) 5.3, Eos % (Auto) 0.2, Baso % (Auto) 0.3, Neut # (Auto) 10.0 H, Lymph # (Auto) 0.7, Dane # (Auto) 0.6, Eos # (Auto) 0.0, Baso # (Auto) 0.0, Total Counted 100, Neutrophils % (Manual) 85 H, Lymphocytes % (Manual) 10, Monocytes % (Manual) 5, Platelet Estimate Normal, Hypochromasia 1+, Anisocytosis 1+ 08/25/21 06:58: Sodium 134 L, Potassium 3.5, Chloride 101, Carbon Dioxide 29, Anion Gap 7.5, BUN 32 H D, Creatinine 0.80 D, Estimated Creat Clear 107, Estimated GFR 93, Est GFR ( Amer) 113 D, Glucose 96, Calcium 8.9 I & O for Last 24 hours: Intake & Output 08/22/21 08/23/21 08/24/21 08/25/21 23:59 23:59 23:59 23:59 Intake Total 0 / 0 900 / 900 Output Total 5900 / 7700 2950 / 3700 1250 / 1250 Balance -5900 / -7700 -2950 / -3700 -350 / -350 Weight 283 lb 3.2 oz 283 lb 3.2 oz 282 lb 3.067 oz Microbiology Reports for the Last 24 Hours: Microbiology 08/22/21 18:24 Blood Blood Culture - Preliminary NO GROWTH AFTER 48 HOURS 08/22/21 18:24 Blood Blood Culture - Preliminary NO GROWTH AFTER 48 HOURS - Constitutional no acute distress, chronically ill appearing - *Routine HEENT Exam Head: Present: normocephalic Eye: Present: EOMI ENT: Present: mucous membranes moist - *Routine Neck Exam Present: trachea midline. Absent: tracheal deviation - *Routine Respiratory Exam Present: CTA bilaterally. Absent: accessory muscle use - *Routine Cardiovascular Exam Present: RRR - *Routine Abdominal Exam Present: soft, normoactive bowel sounds. Absent: tenderness, firm - *Routine Extremities Exam Present: edema, pulses intact. Absent: cyanosis, clubbing, full ROM - *Routine Skin Exam Present: erythema, dry, wounds. Absent: intact, cyanosis Comments: Right lower extremity with external fixation and edema Stage II to coccyx Assessment and Plan (1) Acute delirium Status: Acute Category: Medical Code(s): R41.0 - Disorientation, unspecified (2) Obesity (BMI 30-39.9) Status: Acute Category: Medical Code(s): E66.9 - Obesity, unspecified (3) Anemia Status: Acute Qualifiers: Anemia type: unspecified type Qualified Code(s): D64.9 - Anemia, unspecified Category: Medical Code(s): D64.9 - Anemia, unspecified (4) Dysphagia Status: Acute Category: Medical Code(s): R13.10 - Dysphagia, unspecified (5) Acute hyperkalemia Status: Acute Category: Medical Code(s): E87.5 - Hyperkalemia (6) Acute renal failure (ARF) Status: Acute Qualifiers: Acute renal failure type: unspecified Qualified Code(s): N17.9 - Acute kidney failure, unspecified Category: Medical Code(s): N17.9 - Acute kidney failure, unspecified (7) Hyponatremia Status: Acute Category: Medical Code(s): E87.1 - Hypo-osmolality and hyponatremia (8) Hypothyroidism Status: Acute Qualifiers: Hypothyroidism type: acquired Qualified Code(s): E03.9 - Hypothyroidism, unspecified Category: Medical Code(s): E03.9 - Hypothyroidism, unspecified (9) Mass of right lung Status: Acute Category: Medical Code(s): R91.8 - Other nonspecific abnormal finding of lung field
--- NOTE | 2021-08-25 10:10 | XR_ITS ---
FINAL REPORT CLINICAL HISTORY: External Fixation..fall and fx a fews ago FINDINGS: Two views of the right tibia-fibula were obtained. There is an external fixator device in place. There has been total knee prosthesis. There is overlying artifact that partially obscures optimal visualization. A K-wire is seen through the distal fibula. IMPRESSION: Postoperative changes. Reviewed, Interpreted and Dictated by Ricardo Black MD Transcribed by Magnus Mckeon Authenticated by Ricardo Black MD on 08/25/2021 11:15:53 AM [facility]
--- NOTE | 2021-08-25 10:33 | HMH.PHAINT ---
MEDICATION RECONCILIATION COMPLETED ON PATIENT USING MAR FROM [facility]. -SERA MCCULLOUGH, LARAD
--- NOTE | 2021-08-25 13:01 | HMH.ORTHOCON ---
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 from the ED on 08/23/2021. He is a resident at [facility] in [place], [place] but was admitted to the acute inpatient service due to acute confusion. This morning the patient is lying comfortably in bed and his is present at the bedside. Patient is alert but somewhat confused, history obtained from his . Per family, the patient fell on 07/12/2021 and twisted his right ankle. Approximately 1 week later, he had a repeat fall with subsequent open wound/open fracture that required external fixator placement on 07/22/2021 at the [facility]. Prior to his fall, the patient's reports that he was ambulatory with the use of a walker, but has been bedridden since his fall. Today the patient reports that he has little to no pain in his right leg at rest. He denies fever, chills, rigors, hip pain, back pain, chest pain, shortness of breath, or distal tingling/numbness. The patient and his have expressed a desire to go home with hospice care and make the patient as comfortable as possible, and are interested in removal of his external fixator to make caring for him at home easier. His past medical history is significant for malignancy with metastasis, atrial fibrillation, COPD, hypertension, hyperlipidemia, and GERD. He denies any other symptoms or concerns at this time. <Zaida Garland 08/25/21 14:08> [facility] History Medical History: Reports:: Atrial Fibrillation, Cancer, Hyperlipidemia, Hypertension Denies:: Diabetes Mellitus Type 1, Diabetes Mellitus Type 2, MRSA <Zaida Garland 08/25/21 13:06> *Have you ever received a pneumonia vaccine?: No <Zaida Garland 08/25/21 13:06> *Have you received a flu vaccine this season?: No <Zaida Garland 08/25/21 13:06> Other Medical History: Reports: Anemia, Arthritis, Cataracts, Chemotherapy, Radiation Therapy <Zaida Garland 08/25/21 13:06> Laterality Cases: Left: Total Hip Replacement, Right: Arthroscopy Shoulder, Bilateral: Total Knee Replacement <Zaida Garland 08/25/21 13:06> Other Surgeries: Yes: Hernia Repair <Zaida Garland 08/25/21 13:06> Amputation: No <Zaida Garland 08/25/21 13:06> Fractures: Yes (right bimalleolar fracture) <Zaida Garland 08/25/21 13:06> - *Social History Smoking Status: Never smoker <Zaida Garland 08/25/21 13:06> Alcohol Intake: former <Zaida Garland 08/25/21 13:06> *Occupational Status:: retired <Zaida Garland 08/25/21 13:06> Household Members: spouse <Zaida Garland 08/25/21 13:06> *Travel in the last 8 weeks: None <Zaida Garland 08/25/21 13:06> Family Hx:: Cancer, Heart Attack, Hyperlipidemia, Hypertension <Zaida Garland 08/25/21 13:06> Review of Systems - Review of Systems Review of systems:: pertinent systems reviewed and negative unless documented below <Zaida Garland 08/25/21 14:08> - Constitutional Denies anorexia, Denies body ache(s), Denies chills, Denies fatigue, Denies fever(s), Denies headache(s), Denies weakness <Zaida Garland 08/25/21 14:08> - Eyes Denies blind spots, Denies double vision <Zaida Garland 08/25/21 14:08> - ENT Denies abnormal hearing, Denies dizziness, Denies headache(s), Denies nasal congestion, Denies neck pain, Denies sore throat <Zaida Garland 08/25/21 14:08> - *Cardiovascular Denies chest pain, Denies chest pain at rest, Denies chest pain with activity, Denies shortness of breath <Zaida Garland - 08/25/21 14:08> - *Respiratory Denies chest congestion, Denies cough, Denies shortness of breath, Denies pain on inspiration, Denies wheezing <Zaida Garland - 08/05
--- NOTE | 2021-08-25 14:51 | PC.NURSE ---
PT HAS BEEN AO TO PERSON THIS SHIFT. HAS BEEN AT BEDSIDE. HE HAS BEEN MEDICATED AT REGULAR INTERVALS WITH PRN PAIN MEDICATION WITH GOOD EFFECTIVENESS. PT IS TO BE NPO AT MIDNIGHT FOR POSSIBLE REMOVAL OF EXTERNAL FIXATION DEVICE TO RLE TOMORROW.
[2021-08-25 18:58] VITALS: O2SAT 90
--- NOTE | 2021-08-25 18:59 | PC.NURSE ---
RA SATS 90%. TURNED O2 DOWN TO 2LPM N/C
[2021-08-25 19:23] VITALS: BP 109/84; PULSE 89; RESP 17; TEMP 36.6; O2SAT 97
[2021-08-25 20:00] VITALS: O2SAT 97
[2021-08-26] VITALS (20 sets, daily range): BP systolic 86–142; BP diastolic 52–91; PULSE 67–126; RESP 14–20; TEMP 36.6–37.2; O2SAT 94–98; BMI 34.9
[2021-08-26 06:51] LABS: Basophils % 0.3 % (0.1-2.0); Eosinophils # 0.1 K/mm3 (0.0-0.4); Eosinophils % 1.6 % (0.1-12.0); Hematocrit 25.6 % (42.0-52.0); Hemoglobin 7.8 g/dL (14.1-18.0); Lymphocytes # 0.6 K/mm3 (0.7-4.5); Lymphocytes % 6.9 % (10-50); Mean Corpuscular HGB Conc 30.6 g/dL (31.8-35.4); Mean Corpuscular Hemoglobin 29.9 pg (27.0-31.2); Mean Corpuscular Volume 97.7 fl (80-94); Mean Platelet Volume 8.3 fl (7.4-10.4); Monocytes # 0.3 K/mm3 (0.1-1.0); Monocytes % 3.7 % (1.7-9.3); Neutrophils # 7.4 K/mm3 (1.8-7.8); Neutrophils % 87.6 % (37.0-80.0); Platelet Count 315 K/mm3 (142-424); Red Blood Count 2.62 M/mm3 (4.60-6.20); Red Cell Distribution Width 19.4 % (11.5-17.5); White Blood Count 8.4 K/mm3 (4.8-10.8)
[2021-08-26 06:52] LABS: Chloride 105 mmol/L (98-107); Potassium 3.4 mmoL/L (3.5-5.1); Sodium 136 mmol/L (136-145)
[2021-08-26 06:55] LABS: Anion Gap 6.4 mEq/L (5-15); Blood Urea Nitrogen 24 mg/dl (9-20); Carbon Dioxide 28 mmol/L (22.0-30.0); Creatinine Clearance Estimated 103 mL/min (50-200); Estimated Glomerular Filt Rate 109 ml/min (>60); GFR (African American) 131 ML/MIN (>60); Glucose 78 mg/dl (74-100)
[2021-08-26 07:01] LABS: MANUAL DIFFERENTIAL MANUAL DIFFERENTIAL (MANUAL DIFF)
--- NOTE | 2021-08-26 08:00 | XR_ITS ---
FINAL REPORT CLINICAL HISTORY: external fixator COMPARISON: Tibia and fibula series dated 08/25/2021 FINDINGS: RIGHT ANKLE 3 views of the right ankle were obtained. There is an external fixation device present. There is a K-wire securing the distal fibula. The mortise is intact. There is a large plantar calcaneal spur on the lateral view. There are moderate hypertrophic changes of the tarsal metatarsal joints. IMPRESSION: Postsurgical changes as above. Reviewed, Interpreted and Dictated by Ricardo Black MD Transcribed by DHEERAJ Sebastian Authenticated by Ricardo Black MD on 08/26/2021 01:13:[address] [facility]
[2021-08-26 09:00] LABS: Hypochromasia 1+; Lymphocytes % 2 % (10-50); Monocytes % 3 % (2-9); Neutrophils % 95 % (42-76); Platelet Estimate Normal; Total Cells Counted 100
--- NOTE | 2021-08-26 09:25 | HMH.ACPN2 ---
Internal Medicine - PN: Subj *Date: 08/26/21 *Time: 08:00 Interval history: pt laying in bed at bedside, states she signed all the paperwork for [facility] Exam Vital signs and Labs for Last 24 Hours: Temp Pulse Resp BP Pulse Ox 98.8 F 85 19 134/82 95 08/26/21 08:45 08/26/21 08:00 08/26/21 08:00 08/26/21 08:00 08/26/21 08:00 Laboratory Results - last 24 hr 08/26/21 05:46: WBC 8.4 D, RBC 2.62 L, Hgb 7.8 L, Hct 25.6 L, MCV 97.7 H, MCH 29.9, MCHC 30.6 L, RDW 19.4 H, Plt Count 315, MPV 8.3, Neut % (Auto) 87.6 H, Lymph % (Auto) 6.9 L, Liberty % (Auto) 3.7, Eos % (Auto) 1.6, Baso % (Auto) 0.3, Neut # (Auto) 7.4, Lymph # (Auto) 0.6 L, Liberty # (Auto) 0.3, Eos # (Auto) 0.1, Baso # (Auto) 0.0, Total Counted 100, Neutrophils % (Manual) 95 H, Lymphocytes % (Manual) 2 L, Monocytes % (Manual) 3, Platelet Estimate Normal, Hypochromasia 1+ 08/26/21 05:46: Sodium 136, Potassium 3.4 L, Chloride 105, Carbon Dioxide 28, Anion Gap 6.4, BUN 24 H, Creatinine 0.70, Estimated Creat Clear 103, Estimated GFR 109, Est GFR ( Amer) 131, Glucose 78, Calcium 9.0 I & O for Last 24 hours: Intake & Output 08/23/21 08/24/21 08/25/21 08/26/21 11:59 11:59 11:59 11:59 Intake Total 0 / 0 900 / 900 Output Total 3500 / 3500 4200 / 4200 2400 / 2400 840 / 840 Balance -3500 / -3500 -4200 / -4200 -1500 / -1500 -840 / -840 Weight 283 lb 3.2 oz 282 lb 3.067 oz 272 lb 9.6 oz - Constitutional no acute distress, obese, chronically ill appearing - *Routine HEENT Exam Head: Present: normocephalic Eye: Present: PERRL ENT: Present: mucous membranes moist - *Routine Neck Exam Present: supple. Absent: lymphadenopathy - *Routine Respiratory Exam Present: CTA bilaterally - *Routine Cardiovascular Exam Present: tachycardia, irregular rhythm - *Routine Abdominal Exam Present: soft, normoactive bowel sounds. Absent: tenderness - *Routine Extremities Exam Absent: cyanosis, clubbing, edema Comments: fixation to rt lower ext - *Routine Skin Exam Present: warm, wounds. Absent: rash - *Routine Neurological Exam Present: alert, oriented X3 Assessment and Plan (1) Acute delirium Status: Acute Category: Medical Code(s): R41.0 - Disorientation, unspecified (2) Obesity (BMI 30-39.9) Status: Acute Category: Medical Code(s): E66.9 - Obesity, unspecified (3) Anemia Status: Acute Qualifiers: Anemia type: unspecified type Qualified Code(s): D64.9 - Anemia, unspecified Category: Medical Code(s): D64.9 - Anemia, unspecified (4) Dysphagia Status: Acute Category: Medical Code(s): R13.10 - Dysphagia, unspecified (5) Acute hyperkalemia Status: Acute Category: Medical Code(s): E87.5 - Hyperkalemia (6) Acute renal failure (ARF) Status: Acute Qualifiers: Acute renal failure type: unspecified Qualified Code(s): N17.9 - Acute kidney failure, unspecified Category: Medical Code(s): N17.9 - Acute kidney failure, unspecified (7) Hyponatremia Status: Acute Category: Medical Code(s): E87.1 - Hypo-osmolality and hyponatremia (8) Hypothyroidism Status: Acute Qualifiers: Hypothyroidism type: acquired Qualified Code(s): E03.9 - Hypothyroidism, unspecified Category: Medical Code(s): E03.9 - Hypothyroidism, unspecified (9) Mass of right lung Status: Acute Category: Medical Code(s): R91.8 - Other nonspecific abnormal finding of lung field (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
--- NOTE | 2021-08-26 10:00 | DIET.NUTRFU ---
CLAUDIA rounded with Ramirez this AM, patient is NPO scheduled for ortho sx to have fixation device removed. signed on with hospice yesterday and plans to take home. He continues to only drink boost is providing. Comfort measures in place.
--- NOTE | 2021-08-26 11:38 | HMH.ORTHPN ---
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 This morning the patient is lying comfortably in bed and his is present at the bedside. Patient is alert but continues to be somewhat confused. He reports minimal pain in his right leg/foot that he states is well controlled with medication. He had an external fixator applied to his right leg/ankle at the [facility] in July of 2021 and the patient and he and his have expressed a desire to go home with hospice care and are interested in removal of his external fixator to make caring for him at home easier. He denies fever, chills, rigors, hip pain, back pain, chest pain, shortness of breath, or distal tingling/numbness. His past medical history is significant for malignancy with metastasis, atrial fibrillation, COPD, hypertension, hyperlipidemia, and GERD. He denies any other symptoms or concerns at this time. <GarlandZaida - 08/26/21 11:43> PN: Obj Ex Vital signs: Temp Pulse Resp BP Pulse Ox 97.8 F 87 20 142/76 H 94 L 08/26/21 16:55 08/26/21 16:55 08/26/21 16:55 08/26/21 16:55 08/26/21 17:46 <ShreeMikel Winslow - 08/26/21 18:10> Temp Pulse Resp BP Pulse Ox 98.8 F 85 19 134/82 95 08/26/21 08:45 08/26/21 08:00 08/26/21 08:00 08/26/21 08:00 08/26/21 08:00 <GarlandZaida - 08/26/21 11:38> - Constitutional no acute distress, obese, chronically ill appearing, cooperative <Zaida Garland - 08/26/21 16:33> - Routine HEENT Exam Head: Present: normocephalic, atraumatic <Zaida Garland 08/26/21 16:33> Eye: Present: EOMI, PERRL <Zaida Garland 08/26/21 16:33> ENT: Present: mucous membranes moist <Zaida Garland 08/26/21 16:33> - Routine Neck Exam Present: supple, full ROM, trachea midline. Absent: JVD <GarlandZaida steel 08/26/21 16:33> - Routine Respiratory Exam Present: CTA bilaterally. Absent: accessory muscle use, respiratory distress <GarlandZaida 08/26/21 16:33> Comments: Symmetric chest movement, able to speak in complete sentences <GarlandZaida steel 08/26/21 16:33> - Routine Cardiovascular Exam Present: RRR, Normal S1, Normal S2. Absent: JVD <GarlandZaida 08/26/21 16:33> Comments: Normal peripheral pulses <GarlandZaida 08/26/21 16:33> - Routine Abdominal Exam Present: soft, normoactive bowel sounds. Absent: tenderness <GarlandZaida 08/26/21 16:33> - Routine Extremities Exam Present: pulses intact. Absent: calf tenderness <GarlandZaida 08/26/21 16:33> Comments: Upon examination of the right lower extremity/ankle: There is an external fixator in place from the proximal tibia to the distal ankle and foot. Dressings present over the right ankle are clean, dry, intact. No evidence of drainage or bleeding noted. The knee, calf, foot, and ankle are nontender to palpation. Range of motion of the foot and ankle is limited secondary to discomfort/stiffness and presence of external fixator. Thigh and calf are soft nontender; Homans' sign is negative. No clinical evidence of DVT noted. Posterior tibial pulse 1+, dorsalis pedis pulse 1+; capillary refill is brisk. Sensation to light touch is grossly intact throughout. Patient is actively mobilizing the toes. <DadaZaida Mcclure 08/26/21 16:35> - Routine Skin Exam Present: intact, warm, normal turgor. Absent: erythema, jaundice <Zaida Garland - 08/26/21 16:35> - Routine Neurological Exam Present: alert, altered mental status, moving all extremities, normal tone, normal speech. Absent: sensory deficit, motor deficit <Zaida Garland -
--- NOTE | 2021-08-26 12:43 | HMH.ANESCL ---
[facility] Anesthesia Checklist - Patient Identification Patient Identification: Verbal (Name & ) - Structural Data Admitted From: Inpatient Planned Operative Procedure/s: Removal of Right Lower Extremity Fixator Consent for Planned Operative Procedure(s) Verified: Yes Verified Documents: Surgical Consent - Chart Verification Results Verified: CBC, BMP - Airway Assessment C-Spine Mobility Assessed: Yes TMJ Mobility Assessed: Yes - Neurological Assessment Level of Consciousness: Awake, Alert, Appropriate - Anesthesia Plan ASA Class: III Anesthesia Type: IV sedation [facility] History I have reviewed the patient's past medical history: Yes Medical History: Reports:: Atrial Fibrillation, Cancer, Hyperlipidemia, Hypertension Denies:: Diabetes Mellitus Type 1, Diabetes Mellitus Type 2, MRSA *Have you ever received a pneumonia vaccine?: No *Have you received a flu vaccine this season?: No Other Medical History: Reports: Anemia, Arthritis, Cataracts, Chemotherapy, Radiation Therapy Anesthesia experience/problems:: none Laterality Cases: Left: Total Hip Replacement, Right: Arthroscopy Shoulder, Bilateral: Total Knee Replacement Other Surgeries: Yes: Hernia Repair Amputation: No Fractures: Yes (right bimalleolar fracture) - *Social History Smoking Status: Never smoker Alcohol Intake: former Substance Use Type: denies use *Occupational Status:: retired Household Members: spouse *Travel in the last 8 weeks: None Family Hx:: Cancer, Heart Attack, Hyperlipidemia, Hypertension
--- NOTE | 2021-08-26 13:39 | XR_ITS ---
FINAL REPORT CLINICAL HISTORY: REMOVAL OF HARDWARE IN OR C-ARM FINDINGS: RIGHT ANKLE in the OR Two fluoroscopic images were obtained during procedure in the OR. Fluoroscopy time: 15 seconds IMPRESSION: Fluoroscopy in the operating room. Please see report of the operating physician. Reviewed, Interpreted and Dictated by Ricardo Black MD Transcribed by DHEERAJ Sebastian Authenticated by Ricardo Black MD on 08/26/2021 03:53:23 PM [facility]
--- NOTE | 2021-08-26 13:58 | SUR.PHASEI ---
1340- oh pereira notifed of pt's current heart rate. He states that he does not want to treat at this time. 1351- detailed report called to dinora adrian on medsurg floor by dinora wang. 1352- pt left in stable condition with dinora adrian on medsurg floor by dinora bae
--- NOTE | 2021-08-26 14:02 | HMH.OPNOTE ---
Date of procedure: 08/26/21 Pre-op Diagnosis:: 1. Status post K wire fixation, lateral malleolus fracture, right ankle 2. Status post external fixator application, open fracture, right ankle Post-op Diagnosis:: Same Procedure performed:: 1. Removal of K wire, right ankle 2. Removal of external fixator, right ankle Surgeon:: Mikel Swann MD Civil Engineering Project Designer(s):: Zaida Garland PA-C ETL CONSULTANT:: Other (Ryland Caruso) Anesthesia: other (IV sedation) Estimated blood loss (mL): 2 Clinical Note:: 81-year-old male with advanced metastatic cancer, status post external fixator application and K wire fixation, for an open fracture of the right ankle at an outside facility about 4 weeks ago. The laceration over the anteromedial aspect of the distal leg/ankle is healing well with a small raw area with healthy granulation tissue. The medial part of the laceration was closed and the sutures are still in place. No evidence of any wound infection or pin tract infection noted. Patient has been in a [facility] since the injury and now patient and his want to pursue hospice care at home. They are now requesting removal of the external fixator which would make caring for him at home somewhat easier. X-rays of the right ankle are showing the fractures to be healing well. The ankle mortise is well reduced and appears stable. I have discussed the procedure, risks, benefits and alternatives in detail. The complications discussed include but are not limited to- infection, injury to nerves, tendons and blood vessels, pin tract infection, DVT/PE, malunion, loss of position, refracture, ankle stiffness, CRPS (complex regional pain syndrome- pain, sensory and temperature changes, swelling and stiffness), incomplete relief of pain, incomplete return of function, and likely need for further surgery in future and also the risks of anesthesia including heart attack, stroke, and even . I have also explained how additional surgery may be required if there are any complications. We have also discussed the postoperative management, recovery and rehabilitation, immobilization required, the likely need for physical therapy. Patient is a high anesthetic risk given his medical status and comorbidities. I feel it would be best to remove the external fixator under light sedation. I have told him that he may need some sort of splinting after removal of the external fixator and also would need wound care until the wound and pin tracts heal completely. The patient and his expressed full understanding and have asked appropriate questions. All their questions were answered, and they verbalized a good understanding. Patient desires to proceed with the proposed surgery of removal of external fixator external fixator and K wire from his right ankle. Patient understood the risks, agreed to proceed with surgery, signed the consent form and no guarantees or assurances were given or implied. Please refer to orthopedic consult note for full details. Operative findings:: Healing fractures of the distal fibula and distal tibia (posterior malleolus fracture) as noted on the preoperative imaging.? The overall alignment is satisfactory and the ankle mortise is intact and stable.? The pin tracts are healthy without any evidence of infection or other complications. Operative note:: On the day of the procedure the patient and his were met in the preoperative area and positively identified. The site was appropriately marked. A physical examination was performed and documented. I have again discussed the proposed surgery, risks and benefits and alternatives in detail.? Patient wished to proceed with surgery in the form of removal of the K wire and external fixator from the right ankle under anesthesia. The patient was brought to the operating room and placed supine on the bed. All the bony prominences were appropriately padded. IV sedation with propofol was administered by the soft work wrapper layer and examiner.? Administration
--- NOTE | 2021-08-26 14:35 | PC.NURSE ---
PT IS RESTING IN BED WITH FAMILY AT BEDSIDE. ALERT TO SELF ONLY. MEDICATED PER MAR FOR DISCOMFORT. PT HAS BEEN RELUCTANT TO TURNING AND REPOSITIONING THIS SHIFT. PT DOES BETTER WITH REPOSITIONING WHEN HE IS PREMEDICATED. PT TOLERATED SURGICAL PROCEDURE WELL. DRESSINGS/BOOT NOTED TO RLE. HR IRREGULAR. LUNG SOUNDS DIMINISHED WITH SCATTERED RHONCHI. ABDOMEN SOFT/NON TENDER WITH ACTIVE BOWEL SOUNDS. SWELLING NOTED TO BUE/LLE. WILL CONTINUE TO MONITOR.
--- NOTE | 2021-08-26 18:28 | P.PN_ITS ---
[facility] Anesthesia Record Part II Discharge Time: 13:52 Destination: 2nd Floor PACU nurse assessment reviewed?: Yes Patient Condition:: Fair Anesthesia Complications:: None none Swallowing reflex intact?: Yes Cyanosis?: No Blood Pressure: 105/70 Pulse Rate: 124 Temperature: 98.7 F Mental Status: Alert & Oriented Pain level:: 0 Nausea and/or vomitting:: None Intake, IV Amount: 0
--- NOTE | 2021-08-26 18:30 | P.PN_ITS ---
[facility] Anesthesia Record Part I Intake, IV Amount: 300 Estimated blood loss (mL): 0 Urine output (mL): 0 Blood Pressure: 86/64 SaO2: 97 Pulse Rate: 126 Respiratory Rate: 18 Temperature: 98.6 F Patient is:: Drowsy Stable to PACU at:: 13:37
[2021-08-27] VITALS: O2SAT 98
[2021-08-27 04:00] VITALS: BP 112/72; PULSE 62; RESP 17; TEMP 36.6; O2SAT 95
[2021-08-27 06:33] LABS: Basophils % 0.4 % (0.1-2.0); Eosinophils # 0.1 K/mm3 (0.0-0.4); Eosinophils % 2.1 % (0.1-12.0); Hematocrit 24.3 % (42.0-52.0); Hemoglobin 7.7 g/dL (14.1-18.0); Lymphocytes # 0.5 K/mm3 (0.7-4.5); Lymphocytes % 7.1 % (10-50); Mean Corpuscular HGB Conc 31.4 g/dL (31.8-35.4); Mean Corpuscular Hemoglobin 30.3 pg (27.0-31.2); Mean Corpuscular Volume 96.4 fl (80-94); Mean Platelet Volume 7.5 fl (7.4-10.4); Monocytes # 0.3 K/mm3 (0.1-1.0); Monocytes % 4.8 % (1.7-9.3); Neutrophils # 5.8 K/mm3 (1.8-7.8); Neutrophils % 85.5 % (37.0-80.0); Platelet Count 283 K/mm3 (142-424); Red Blood Count 2.52 M/mm3 (4.60-6.20); Red Cell Distribution Width 17.9 % (11.5-17.5); White Blood Count 6.8 K/mm3 (4.8-10.8)
[2021-08-27 06:35] LABS: MANUAL DIFFERENTIAL MANUAL DIFFERENTIAL (MANUAL DIFF)
[2021-08-27 06:43] LABS: Chloride 106 mmol/L (98-107)
[2021-08-27 06:44] LABS: Potassium 3.3 mmoL/L (3.5-5.1); Sodium 139 mmol/L (136-145)
[2021-08-27 06:47] LABS: Blood Urea Nitrogen 22 mg/dl (9-20); Calcium 8.9 mg/dl (8.4-10.2); Creatinine Clearance Estimated 103 mL/min (50-200); Estimated Glomerular Filt Rate 109 ml/min (>60); GFR (African American) 131 ML/MIN (>60); Glucose 85 mg/dl (74-100)
[2021-08-27 07:17] LABS: Anion Gap 10.3 mEq/L (5-15); Carbon Dioxide 26 mmol/L (22.0-30.0)
[2021-08-27 07:24] LABS: Anisocytosis 1+; Hypochromasia 1+; Lymphocytes % 21 % (10-50); Monocytes % 5 % (2-9); Neutrophils % 74 % (42-76); Total Cells Counted 100
[2021-08-27 07:25] LABS: Platelet Estimate Normal
[2021-08-27 08:00] VITALS: BP 142/78; PULSE 126; RESP 19; TEMP 36.6; O2SAT 94
--- NOTE | 2021-08-27 09:02 | HMH.DCSUM ---
General - General Admission date:: 08/22/21 Discharge date: 08/27/21 HPI HPI: this is a patient who has complicated medical hx and was at [facility] and dev acute confusion - he has known ent cancer and treatment had been suspended sec to other health issues - can only drink liquids - he was seen in the ed per ems. per ems pt has slurred speech, tremors and weakness. on arrival pt is alert and oriented to self. pt has no complaints. pt denies any pain. unable to reach retirement staff for report. 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 Patient was found this AM around 0800 at retirement by at bedside (who provides history) and patient seemed confused, staring off into space, grabbing at seemingly visual hallucinations in air in front of him, with slurred speech. He was more tremulous than usual (but at baseline has tremors due to peripheral neuropathy per his at bedside). He was noted by retirement to have dark urine this AM and there was concern for UTI. Patient normally able to conversate without trouble and without confusion. History is difficult to obtain from patient himself given his altered mental status male presents for AMS. LKN 1700 on 08/21/21. Seen altered this AM by at retirement. Patient intermittently following commands, with slurred speech, answering questions appropriately at times, mild right lower facial droop, with RUE weakness compared to LUE. He is awake, alert, able to respond to external stimuli intermittently. Not able to participate with full neuro exam. Tachycardic at times, with increased tremors making obtaining consistent cardiac monitoring and spo2 monitoring difficult to obtain. Afebrile, normal range temp. Low-normal BP in triage. DDx includes but not limited to sepsis, intoxication, electrolyte abnormality, CVA, ACS, PE, metastasis. Labs reveal wbc 18k, k 6.5, cr 7.1, bun 110. EKG shows afib without RVR, with wavy baseline given patient's tremors but no gross ST changes. Given pt's encephalopathy and lab findings I believe patient needs emergent dialysis and advised patient's that patient would need transfer to dialysis capable facility given that is not done here. discussed extensively with patient who is pt's poa about pt's critical illness and time sensitive treatment needs and after long discussion, pt states she would not want pt to suffer and pt himself would not want this for himself. Pt made DNR, DNI and pt states she does not believe pt would want to have dialysis or be transferred for this. She wants pt to be comfortable and I directly expressed that pt has extremely poor prognosis without dialysis and may within hours to days. she understands this and acknowledges that she believes pt would want things as per her choices for him at this time. Pt was given calcium, insulin, dextrose, bicarbonate here in the ED. CT head was without acute findings. Contrasted scans were not obtained given patient's critically poor renal function and given his anticipated clinical course,and pt's amenable to this plan for patient. CXR shows right lung mass and infiltrates. Blood and urine cultures collected, pt given empiric abx vancomycin and cefepime. Spoke with Dr. Peralta (cloud automation tester inpatient physician for admissions) and he is amenable to this plan. 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
--- NOTE | 2021-08-27 10:33 | PC.NURSE ---
hospice called and stated they would take care of medications for pt when he gets home. paperwork has been completed. ambulance has been notified of transport.
== END 2021-08-27 11:14 | disposition hospice, home (50) | DRG 988 ==
LOC: ER 18:13 → 2ND 19:19
PROVIDERS: Emergency Medicine; Nurse Practitioner Family; Orthopaedic Surgery; Admitting Provider Internal Medicine Adolescent Medicine; Emergency Provider Student in an Organized Health Care Education/Training Program; PCP Family Medicine; Visit Provider Family Medicine
PROC: 0QPG04Z Removal of Internal Fixation Device from Right Tibia, Open Approach (ICD-10-PCS; principal; 2021-08-26 12:00)
DX: N17.9 Acute kidney failure, unspecified (principal); G93.40 Encephalopathy, unspecified; C78.02 Secondary malignant neoplasm of left lung; C78.01 Secondary malignant neoplasm of right lung; E87.1 Hypo-osmolality and hyponatremia; C09.9 Malignant neoplasm of tonsil, unspecified; I48.91 Unspecified atrial fibrillation; Z79.01 Long term (current) use of anticoagulants; J44.9 Chronic obstructive pulmonary disease, unspecified; I10 Essential (primary) hypertension; E78.5 Hyperlipidemia, unspecified; G62.9 Polyneuropathy, unspecified; E87.5 Hyperkalemia; L89.92 Pressure ulcer of unspecified site, stage 2; K21.9 Gastro-esophageal reflux disease without esophagitis; C14.0 Malignant neoplasm of pharynx, unspecified; E66.9 Obesity, unspecified; Z68.35 Body mass index [BMI] 35.0-35.9, adult; E03.9 Hypothyroidism, unspecified; D64.9 Anemia, unspecified; Z96.641 Presence of right artificial hip joint; Z96.653 Presence of artificial knee joint, bilateral; S82.61XA Displaced fracture of lateral malleolus of right fibula, initial encounter for closed fracture
CPT/HCPCS: 20680; 20694; 36415; 70450; 71045; 73590; 73600; 73610; 76000; 80048; 80053; 80305; 80329; 81001; 83605; 84436; 84443; 84484; 85007; 85025; 86850; 87040; 93005; 93971; 94760; 96365; 96367; 99284; C9803; U0003; U0005